=== PATIENT | female | born 1950 | race Caucasian/White ===

== ENCOUNTER 2016-07-27 10:31 | Outpatient (CLI) | payer OTHER | END 2016-07-27 10:32 | disposition home or self-care (01) | DX: G47.8 Other sleep disorders (principal); G47.10 Hypersomnia, unspecified; R51 Headache; R06.83 Snoring ==

== ENCOUNTER 2016-09-21 19:43 | Outpatient (CLI) | payer OTHER | END 2016-09-21 19:44 | disposition home or self-care (01) | DX: G47.33 Obstructive sleep apnea (adult) (pediatric) (principal); G47.61 Periodic limb movement disorder; Z68.28 Body mass index [BMI] 28.0-28.9, adult ==

== ENCOUNTER 2016-10-14 10:07 | Outpatient (CLI) | payer OTHER | END 2016-10-14 10:08 | disposition home or self-care (01) | LOC: SC 10:07 | PROVIDERS: ATTEND Nurse Practitioner Family | DX: G47.33 Obstructive sleep apnea (adult) (pediatric) (principal); G47.61 Periodic limb movement disorder | CPT/HCPCS: 99212; 99214 ==

== ENCOUNTER 2017-02-09 11:04 | Outpatient (CLI) | payer OTHER | END 2017-02-09 11:05 | disposition home or self-care (01) | LOC: SC 11:04 | PROVIDERS: ATTEND Nurse Practitioner Family | DX: G47.33 Obstructive sleep apnea (adult) (pediatric) (principal) | CPT/HCPCS: 99212; 99214 ==

== ENCOUNTER 2017-03-31 08:49 | Outpatient (CLI) | payer OTHER | END 2017-03-31 08:50 | disposition home or self-care (01) | LOC: SC 08:49 | PROVIDERS: ATTEND Nurse Practitioner Family | DX: G47.33 Obstructive sleep apnea (adult) (pediatric) (principal) | CPT/HCPCS: 99212; 99214 ==

== ENCOUNTER 2017-05-03 10:26 | Outpatient (CLI) | payer OTHER | END 2017-05-03 10:27 | disposition home or self-care (01) | LOC: SC 10:26 | PROVIDERS: ATTEND Nurse Practitioner Family | DX: G47.33 Obstructive sleep apnea (adult) (pediatric) (principal) | CPT/HCPCS: 99212; 99214 ==

== ENCOUNTER 2017-07-20 13:10 | Outpatient (CLI) | payer OTHER ==
[2017-07-20 18:22] LABS: H. PYLORIS ANTIGEN STL NEGATIVE (Negative)
== END 2017-07-20 13:11 | disposition home or self-care (01) ==
LOC: LAB.R 13:10
PROVIDERS: ATTEND Physician Assistant Medical
DX: K52.9 Noninfective gastroenteritis and colitis, unspecified (principal)
CPT/HCPCS: 81599; 83630; 87045; 87046; 87177; 87209; 87338; 87493

== ENCOUNTER 2017-07-21 10:08 | Outpatient (CLI) | payer OTHER ==
[2017-07-21 17:31] LABS: ALBUMIN 4.2 g/dL (3.2-5.5); ALBUMIN/GLOBULIN RATIO 2.1 (1.0-2.2); BILIRUBIN,TOTAL 0.5 mg/dL (0.2-1.0); CALCIUM 9.3 mg/dL (8.5-10.3); CREATININE 0.6 mg/dL (0.4-1.0); TOTAL PROTEIN 6.2 g/dL (6.7-8.2)
== END 2017-07-21 10:09 | disposition home or self-care (01) ==
LOC: LAB.F 10:08
PROVIDERS: ATTEND Physician Assistant Medical
DX: K52.9 Noninfective gastroenteritis and colitis, unspecified (principal)
CPT/HCPCS: 36415; 80053; 83690; 85651

== ENCOUNTER 2017-08-05 14:39 | Outpatient (CLI) | payer OTHER | END 2017-08-05 14:40 | disposition home or self-care (01) | LOC: LAB.WCP 14:39 | PROVIDERS: ATTEND Physician Assistant Medical | DX: K52.9 Noninfective gastroenteritis and colitis, unspecified (principal) | CPT/HCPCS: 36415; 83516 ==

== ENCOUNTER 2017-08-19 10:50 | Outpatient (CLI) | payer OTHER | END 2017-08-19 10:51 | disposition home or self-care (01) | LOC: SC 10:50 | PROVIDERS: ATTEND Nurse Practitioner Family | DX: G47.33 Obstructive sleep apnea (adult) (pediatric) (principal) | CPT/HCPCS: 99212; 99214 ==

== ENCOUNTER 2017-09-22 08:26 | Outpatient (CLI) | payer OTHER ==
--- NOTE | 2017-09-22 11:02 | Ultrasound Report ---
RIGHT UPPER QUADRANT ULTRASOUND: 09/22/2017 CLINICAL INDICATION: Diarrhea. TECHNIQUE: Real-time scanning was performed with customer sales representative static images obtained. FINDINGS: The liver measures 17 cm. Hepatic echogenicity is increased, likely representing fatty infiltration. Multiple small cysts are present. In the posterior right lobe, there is a hypoechoic 2.1 x 1.7 x 1.6 cm nodule, with associated vascularity. The appearance is suspicious. Further evaluation with liver protocol CT is recommended. The gallbladder is normal. The common bile duct measures 3 mm. The right kidney measures 10.7 cm, and demonstrates no hydronephrosis. No free fluid is present. IMPRESSION: SUSPICIOUS 2 CM NODULE IN THE POSTERIOR RIGHT LOBE OF THE LIVER. FURTHER EVALUATION WITH LIVER PROTOCOL CT IS RECOMMENDED. TD: 09/22/2017 11:01
== END 2017-09-22 08:27 | disposition home or self-care (01) ==
LOC: DI 08:26
PROVIDERS: ATTEND Physician Assistant Medical
DX: K52.9 Noninfective gastroenteritis and colitis, unspecified (principal)
CPT/HCPCS: 76705

== ENCOUNTER 2017-09-22 11:45 | Outpatient (CLI) | payer OTHER ==
--- NOTE | 2017-09-22 16:44 | Mammography Report ---
DIGITAL SCREENING MAMMOGRAM: 09/22/2017 CLINICAL INDICATION: A 66-year-old with family history of breast cancer, for screening. COMPARISON: 06/2015, 10/2012, 09/2011, 05/2010, 05/2009. TECHNIQUE: Routine CC and MLO projections were obtained of the breasts. FINDINGS: Scattered fibroglandular tissue is present within the breasts. There are no dominant masses, suspicious microcalcifications, or secondary signs of malignancy. In comparison to the previous studies, there are no significant changes. ASSESSMENT: NO MAMMOGRAPHIC EVIDENCE OF MALIGNANCY. NO SIGNIFICANT INTERVAL CHANGES. RECOMMENDATION: Screening mammography is recommended annually. BIRADS CATEGORY 1 - NEGATIVE. STANDARD QUALIFYING STATEMENTS: 1. This examination was reviewed with the aid of Computed-Aided Detection (CAD). 2. A negative or benign imaging report should not delay biopsy if clinically suspicious findings are present. Consider surgical consultation if warranted. More than 5% of cancers are not identified by imaging. 3. Dense breasts may obscure an underlying neoplasm. TD: 09/22/2017 16:43
== END 2017-09-22 11:46 | disposition home or self-care (01) ==
LOC: DI.S 11:45
PROVIDERS: ATTEND Physician Assistant Medical
DX: Z12.31 Encounter for screening mammogram for malignant neoplasm of breast (principal); Z80.3 Family history of malignant neoplasm of breast
CPT/HCPCS: 77067

== ENCOUNTER 2017-10-05 11:08 | Outpatient (CLI) | payer OTHER ==
[2017-10-05 11:46] LABS: ALBUMIN 4.2 g/dL (3.2-5.5); ALBUMIN/GLOBULIN RATIO 1.7 (1.0-2.2); BILIRUBIN,TOTAL 0.8 mg/dL (0.2-1.0); CALCIUM 9.2 mg/dL (8.5-10.3); CREATININE 0.6 mg/dL (0.4-1.0); TOTAL PROTEIN 6.7 g/dL (6.7-8.2)
[2017-10-05] MEDS ORDERED: IOPAMIDOL-300 100 ML VIAL ONE (12:08)
[2017-10-05] MEDS ORDERED: IOPAMIDOL-300 100 ML VIAL IVP ONE (12:17)
--- NOTE | 2017-10-05 14:52 | CT Report ---
CT ABDOMEN WITH AND WITHOUT CONTRAST: 10/05/2017 CLINICAL INDICATION: Suspicious lesion posterior right lobe of the liver on ultrasound. TECHNIQUE: Axial CT images of the abdomen were obtained prior to and following 100 mL Isovue 300 intravenously, with enhanced images in the early arterial phase, portal venous phase, and delayed phase. COMPARISON: Ultrasound 09/22/2017. FINDINGS: Limited evaluation of the lung bases is unremarkable. ABDOMEN: The liver demonstrates multiple simple cysts. In the posterior right lobe of the liver, at the site of ultrasound abnormality, there is a 2.3 x 1.5 cm nodule. It demonstrates early arterial enhancement, mildly hyperintense enhancement relative to hepatic parenchyma on portal venous phase, and no evidence of prolonged contrast enhancement on delayed phase imaging. The appearance is suspicious for neoplasm. It is not the enhancement pattern of a typical hepatic hemangioma. Further evaluation with either biopsy or liver MRI is recommended. The spleen, pancreas, kidneys and adrenal glands appear unremarkable. No biliary dilatation is seen. The gallbladder is not dilated. No bowel dilatation, free gas, or free fluid is present. No abdominal adenopathy is seen. IMPRESSION: SUSPICIOUS MASS IN THE POSTEROMEDIAL RIGHT LOBE OF THE LIVER. FURTHER EVALUATION WITH BIOPSY OR LIVER MRI IS RECOMMENDED. CT DOSE REDUCTION STATEMENT In accordance with CT protocol optimization, one or more of the following dose reduction techniques were utilized for this exam: automated exposure control, adjustment of mA and/or KV based on patient size, or use of iterative reconstructive technique. TD: 10/05/2017 14:32
== END 2017-10-05 11:09 | disposition home or self-care (01) ==
LOC: LAB 11:08 → DI 11:09
PROVIDERS: ATTEND Physician Assistant Medical
DX: R16.0 Hepatomegaly, not elsewhere classified (principal)
CPT/HCPCS: 36415; 74170; 80053; Q9967

== ENCOUNTER 2017-12-20 13:02 | Outpatient (CLI) | payer OTHER | END 2017-12-20 13:03 | disposition home or self-care (01) | LOC: LAB.F 13:02 | PROVIDERS: ATTEND Physician Assistant | DX: R19.7 Diarrhea, unspecified (principal) | CPT/HCPCS: 82705 ==

== ENCOUNTER 2018-03-16 09:21 | Outpatient (CLI) | payer OTHER ==
[2018-03-16 18:25] LABS: CHOL/HDL RATIO 2.4 (<4.4); CHOLESTEROL 240 mg/dL; HDL CHOLESTEROL 98 mg/dL; LDL CHOLESTEROL,CALCULATED 122 mg/dL; LDL/HDL RATIO 1.2 (<4.4); VLDL CHOLESTEROL 20 mg/dL
== END 2018-03-16 09:22 | disposition home or self-care (01) ==
LOC: LAB.F 09:21
PROVIDERS: ATTEND Physician Assistant Medical
DX: E78.00 Pure hypercholesterolemia, unspecified (principal); H93.A2 Pulsatile tinnitus, left ear
CPT/HCPCS: 36415; 80061; 83721; 84443

== ENCOUNTER 2018-03-21 14:08 | Outpatient (CLI) | payer OTHER ==
--- NOTE | 2018-03-22 11:54 | Ultrasound Report ---
Reason: HYPERCHOLESTEROLEMIA, PULSATILE TINNITUS, LEFT EAR Procedure Date: 03/21/2018 Accession Number: [id number] / [id number] Procedure: US - Carotid Doppler Complete CPT Code: FULL RESULT: EXAM: BILATERAL CAROTID AND VERTEBRAL ARTERY DUPLEX DOPPLER ULTRASOUND: EXAM DATE: 03/21/2018 04:04 PM CLINICAL HISTORY: Hypercholesterolemia, pulsatile tinnitus, left ear. COMPARISON: None. TECHNIQUE: Grayscale imaging, color Doppler, and duplex spectral Doppler were used to evaluate the carotid and vertebral arteries bilaterally. Static images were obtained. FINDINGS: There is mild intimal thickening bilaterally and scant hypoechoic atherosclerotic plaque in the bulb regions on both sides. No hemodynamically significant plaque is identified in the right or left common or internal carotid arteries. Normal antegrade flow is present in bilateral vertebral arteries. VELOCITIES (cm/sec): Right CCA Mid: PSV 82.83 cm/sec CCA Dist: PSV 74.17 cm/sec ICA Prox: PSV 60.57 cm/sec, EDV 21.63 cm/sec ICA Mid: PSV 53.47 cm/sec, EDV 18.24 cm/sec ICA Dist: PSV 69.54 cm/sec, EDV 21.90 cm/sec ECA: PSV 81.67 cm/sec Vert: PSV 39.02 cm/sec ICA/CCA: 0.93 Left CCA Mid: PSV 82.83 cm/sec CCA Dist: PSV 74.17 cm/sec ICA Prox: PSV 58.72 cm/sec, EDV 19.16 cm/sec ICA Mid: PSV 60.50 cm/sec, EDV 15.30 cm/sec ICA Dist: PSV 75.79 cm/sec, EDV 28.51 cm/sec ECA: PSV 108.17 cm/sec Vert: PSV 52.46 cm/sec ICA/CCA: 1.02 ICA diameter stenosis: Right: Normal by velocity and <70% by NASCET criteria. Left: Normal by velocity and <70% by NASCET criteria. IMPRESSION: 1. No hemodynamically significant bilateral carotid artery plaquing. 2. In the right carotid artery there are no elevated carotid artery velocities to suggest hemodynamically significant stenosis. 3. In the left carotid artery there are no elevated carotid artery velocities to suggest hemodynamically significant stenosis. 4. Normal antegrade flow is present in bilateral vertebral arteries. General Recommendations: Stenosis =50% ICA - Follow-up ultrasound 6-12 months Stenosis <50% ICA - High Risk Patient with plaque - Follow-up ultrasound 1-2 years Normal Study but High Risk Patient - Follow-up ultrasound 3-5 years Management recommendations and diagnostic criteria are based on current IAC endorsed standards in Carotid Artery Stenosis: Grayscale and Doppler Ultrasound Diagnosis. Validated velocity measurements with angiographic measurements and velocity criteria are extrapolated from diameter data as defined by the Society of Radiologists in Ultrasound Consensus Conference Radiology 2003; 229;340-346. RADIA
== END 2018-03-21 14:09 | disposition home or self-care (01) ==
LOC: DI 14:08
PROVIDERS: ATTEND Physician Assistant Medical
DX: E78.00 Pure hypercholesterolemia, unspecified (principal); H93.A2 Pulsatile tinnitus, left ear
CPT/HCPCS: 93880

== ENCOUNTER 2018-03-28 16:12 | Outpatient (CLI) | payer OTHER ==
--- NOTE | 2018-03-29 09:13 | XRAY Report ---
Reason: NECK PAIN,CHRONIC Procedure Date: 03/28/2018 Accession Number: [id number] / [id number] Procedure: XR - Cervical Spine 2 View CPT Code: FULL RESULT: EXAM: CERVICAL SPINE RADIOGRAPHY EXAM DATE: 03/28/2018 04:32 PM. CLINICAL HISTORY: Neck pain, chronic. COMPARISONS: None. TECHNIQUE: 3 views. FINDINGS: Alignment: There is 1 mm of degenerative anterolisthesis of C3 relative to C4, 2 mm of degenerative anterolisthesis of C4 relative to C5 and at least 2 mm of anterolisthesis of C6 relative to C7. Bones: The cervical vertebral bodies and posterior elements are well visualized from the skull base through C7-T1. No fractures or bone lesions. Disks: Degenerative disk space narrowing is noted at C4-C5 and C5-C6. Facets: Multilevel degenerative facet arthrosis is noted at C3-C4 through C6-C7. Soft Tissues: Normal. No prevertebral soft tissue swelling. The visualized lung apices are clear. IMPRESSION: Multilevel degenerative changes as described. No appreciable fracture. RADIA
== END 2018-03-28 16:13 | disposition home or self-care (01) ==
LOC: DI 16:12
PROVIDERS: ATTEND Physician Assistant Medical
DX: M47.9 Spondylosis, unspecified (principal); M50.321 Other cervical disc degeneration at C4-C5 level; M43.12 Spondylolisthesis, cervical region
CPT/HCPCS: 72040

== ENCOUNTER 2018-08-17 13:40 | Outpatient (CLI) | payer OTHER ==
--- NOTE | 2018-08-17 15:54 | XRAY Report ---
Reason: LUMBAR RADICULOPATHY Procedure Date: 08/17/2018 Accession Number: [id number] / [id number] Procedure: XR - Lumbar Spine 2 View CPT Code: FULL RESULT: EXAM: LUMBOSACRAL SPINE RADIOGRAPHY EXAM DATE: 08/17/2018 02:01 PM. CLINICAL HISTORY: Lumbar radiculopathy. COMPARISONS: None. TECHNIQUE: 3 views. FINDINGS: Alignment: There are 6 wlc-zkw-cjbrcfl lumbar vertebral elements. There is a centimeter of grade 1-2 anterolisthesis of L5 on L6. Bones: There are 6 gof-omz-amvibeb lumbar vertebral elements. No fractures or bone lesions. Disks: Mild disk space narrowing at L5-L6. Facets: Mild degenerative facet changes at L5-L6. Sacroiliac Joints: Unremarkable. Soft Tissues: Normal. The visualized bowel gas pattern is normal. Mild osteitis pubis. IMPRESSION: 6 xkf-vrg-olvdrpx lumbar vertebral elements with a centimeter of grade 1-2 anterolisthesis of L5 on L6. RADIA
== END 2018-08-17 13:41 | disposition home or self-care (01) ==
LOC: DI 13:40
PROVIDERS: ATTEND Physician Assistant Medical
DX: M51.36 Other intervertebral disc degeneration, lumbar region (principal); M47.9 Spondylosis, unspecified; M43.16 Spondylolisthesis, lumbar region
CPT/HCPCS: 72100

== ENCOUNTER 2019-10-25 10:53 | Outpatient (CLI) | payer OTHER ==
--- NOTE | 2019-10-25 12:50 | XRAY Report ---
Reason: KNEE PAIN,LEFT Procedure Date: 10/25/2019 Accession Number: [id number] / [id number] Procedure: XR - Knee 3 View LT CPT Code: Final Report FULL RESULT: PROCEDURE: Knee 3 View LT INDICATIONS: KNEE PAIN,LEFT TECHNIQUE: 3 views of the left knee(s) were acquired, and a frontal weightbearing view of the right knee also was obtained. COMPARISON: None. FINDINGS: Bones: No fractures or dislocations. There is, however, moderately severe degenerative osteoarthritic change at the medial compartment with near ctrq-vc-kosm articulation. Mild to moderate degree of narrowing of the joint space is seen at the lateral compartment and at the patellofemoral joint only a mild degree of degeneration can be seen. The degree of osteoarthritic change at the left knee is greater at the medial compartment than on the right by a mild degree. No suspicious bony lesions. Soft tissues: No joint effusion. No suspicious soft tissue calcifications note is made of lobulated soft tissue prominence, within the visualized distal thigh and proximal calf regions bilaterally greater on the right than the left suspicious for representing prominent varices in this patient.. IMPRESSION: No trauma found, no acute disease. Moderately severe medial compartment left knee joint osteoarthritis more prominent than at the slightly lesser degree of involvement on the right. Suspect bilateral varices is noted given the soft tissue prominence in a lobulated fashion over the fatty soft tissues of each lower extremity. Reviewed by: William Vincent MD on 10/25/2019 12:48 PM PDT Approved by: William Vincent MD on 10/25/2019 12:48 PM PDT Station ID: [id number]
== END 2019-10-25 10:54 | disposition home or self-care (01) ==
LOC: DI 10:53
PROVIDERS: ATTEND Physician Assistant Medical
DX: M17.12 Unilateral primary osteoarthritis, left knee (principal)

== ENCOUNTER 2020-03-27 15:14 | Outpatient (CLI) | payer OTHER ==
--- NOTE | 2020-03-28 03:36 | DEXA Report ---
PROCEDURE: Dexa Spine and/or Hip INDICATIONS: POST MENOPAUSAL TECHNIQUE: Dual energy x-ray absorptiometry (DXA) was performed on a [employer] System. Regions measur ed are the AP Spine, femoral neck, and if needed forearm. COMPARISON: None. FINDINGS: Lumbar Spine: Bone Mineral Density 1.091 g/cm/cm,T score -0.7, normal Left Hip: Bone Mineral Density 0.958 g/cm/cm,T score -0.4, normal Left Femoral Neck: Bone Mineral Density 0.840 g/cm/cm, T score -1.4, mild osteopenia (T score greater or equal to -1.0: NORMAL) (T score from -1.1 to -2.4: OSTEOPENIA) (T score less than or equal to -2.5 to: OSTEOPOROSIS) Impression: Mild osteopenia within the left femoral neck. Patients with diagnosis of osteoporosis or osteopenia should have regular bone mineral density assess ment. For those eligible for Medicare, routine testing is allowed once every 2 years. Testing frequ ency can be increased for patients who have rapidly progressing disease or for those who are receivin g medical therapy to restore bone mass. Reviewed by: Kim Jean MD on 03/27/2020 4:54 PM PST Approved by: Kim Jean MD on 03/27/2020 4:54 PM PST Station ID: [id number]
== END 2020-03-27 15:15 | disposition home or self-care (01) ==
LOC: DI 15:14
PROVIDERS: ATTEND Physician Assistant Medical
DX: M85.88 Other specified disorders of bone density and structure, other site (principal)
CPT/HCPCS: 77080

== ENCOUNTER 2020-03-27 15:16 | Outpatient (CLI) | payer OTHER ==
--- NOTE | 2020-03-28 13:20 | Mammography Report ---
BILATERAL DIGITAL SCREENING MAMMOGRAM 3D/2D: 03/27/2020 CLINICAL: Routine screening. Comparison is made to exams dated: 10/02/2017 mammogram, 06/24/2015 mammogram, 10/24/2012 mammogram, 05/18 mammogram, and 05/24/2009 mammogram - [facility]. There are scattered fibrogl andular elements in both breasts. No significant masses, calcifications, or other findings are seen in either breast. There has been no significant interval change. IMPRESSION: NEGATIVE There is no mammographic evidence of malignancy. A 1 year screening mammogram is recommended. This exam was interpreted at Station ID: [id number]. NOTE: For mammograms, a report in lay terms will be sent to the patient. Approximately 15% of breast malignancies will not be visualized mammographically. In the management of a palpable breast mass, a negative mammogram must not discourage biopsy of a clinically suspicious lesion. Electronically Signed By: Montserrat baker/edy:03/27/2020 16:41:24 ACR BI-RADS Category 1: Negative 3341F PARENCHYMAL PATTERN: (A) - The breast(s) demonstrate(s) scattered fibroglandular densities. BI-RADS CATEGORY: (1) - 1 RECOMMENDATION: (ANNUAL) - Recommend routine annual screening mammography. [id number] 1 year screening LATERALITY: (B)
== END 2020-03-27 15:17 | disposition home or self-care (01) ==
LOC: DI 15:16
DX: Z12.31 Encounter for screening mammogram for malignant neoplasm of breast (principal)
CPT/HCPCS: 77063; 77067

== ENCOUNTER 2021-02-21 12:40 | Outpatient (CLI) | payer MEDICARE, OTHER ==
[2021-02-21 14:46] LABS: BASOPHILS % (AUTO) 0.7 %; EOSINOPHILS % (AUTO) 0.5 %; HGB - HEMOGLOBIN 13.2 g/dL (12.0-16.0); LYMPHOCYTES # (AUTO) 1.2 10^3/uL (1.5-3.5); LYMPHOCYTES % (AUTO) 29.9 %; MEAN CORPUSCULAR HEMOGLOBIN 31.7 pg (27.0-31.0); MEAN CORPUSCULAR HGB CONC 32.2 g/dL (32.0-36.0); MEAN CORPUSCULAR VOLUME 98.6 fL (81.0-99.0); MEAN PLATELET VOLUME 9.1 fL (7.9-10.8); MONOCYTES # (AUTO) 0.5 10^3/uL (0.0-1.0); MONOCYTES % (AUTO) 11.9 %; NEUTROPHILS # (AUTO) 2.3 10^3/uL (1.5-6.6); NEUTROPHILS % (AUTO) 56.8 %; PLT - PLATELET COUNT 260 10^3/uL (130-450); RED BLOOD COUNT 4.16 10^6/uL (4.20-5.40); RED CELL DISTRIBUTION WIDTH 13.2 % (12.0-15.0); WHITE BLOOD COUNT 4.1 x10^3/uL (4.8-10.8)
[2021-02-21 15:13] LABS: ALBUMIN 4.2 g/dL (3.2-5.5); ALBUMIN/GLOBULIN RATIO 1.8 (1.0-2.2); BILIRUBIN,TOTAL 0.6 mg/dL (0.2-1.0); CALCIUM 9.8 mg/dL (8.5-10.3); CREATININE 0.6 mg/dL (0.4-1.0); POTASSIUM 4.6 mmol/L (3.5-5.0); TOTAL PROTEIN 6.6 g/dL (6.7-8.2)
== END 2021-02-21 23:59 | disposition home or self-care (01) ==
LOC: LAB.S 12:40
PROVIDERS: ATTEND Emergency Medicine
DX: E11.9 Type 2 diabetes mellitus without complications (principal)
CPT/HCPCS: 36415; 80053; 85025

== ENCOUNTER 2021-05-05 11:00 | Outpatient (CLI) | payer MEDICARE ==
--- NOTE | 2021-05-06 11:46 | Mammography Report ---
BILATERAL DIGITAL SCREENING MAMMOGRAM 3D/2D: 05/05/2021 CLINICAL: Routine screening. Family history of breast cancer. Comparison is made to exams dated: 03/27/2020 mammogram, 10/02/2017 mammogram, 06/24/2015 mammogram, 02/2013 mammogram, and 06/13/2010 mammogram - [facility]. There are scattered fibro glandular elements in both breasts. No significant masses, calcifications, or other findings are seen in either breast. There has been no significant interval change. IMPRESSION: NEGATIVE There is no mammographic evidence of malignancy. A 1 year screening mammogram is recommended. This exam was interpreted at Station ID: [id number]. NOTE: For mammograms, a report in lay terms will be sent to the patient. Approximately 15% of breast malignancies will not be visualized mammographically. In the management of a palpable breast mass, a negative mammogram must not discourage biopsy of a clinically suspicious lesion. Electronically Signed By: Mohit Guzman M.D., jr/edy:05/05/2021 12:00:30 ACR BI-RADS Category 1: Negative 3341F PARENCHYMAL PATTERN: (A) - The breast(s) demonstrate(s) scattered fibroglandular densities. BI-RADS CATEGORY: (1) - 1 RECOMMENDATION: (ANNUAL) - Recommend routine annual screening mammography. [id number] 1 year screening LATERALITY: (B)
== END 2021-05-05 11:01 | disposition home or self-care (01) ==
LOC: DI.S 11:00
DX: Z12.31 Encounter for screening mammogram for malignant neoplasm of breast (principal); Z80.3 Family history of malignant neoplasm of breast

== ENCOUNTER 2021-07-14 09:38 | Outpatient (CLI) | payer MEDICARE ==
[2021-07-14 15:01] LABS: THYROID STIMULATING HORMONE 1.91 uIU/mL (0.34-5.60)
[2021-07-14 15:06] LABS: CHOL/HDL RATIO 2.8 (<4.4); CHOLESTEROL 309 mg/dL; HDL CHOLESTEROL 110 mg/dL; LDL CHOLESTEROL,CALCULATED 185 mg/dL; LDL/HDL RATIO 1.7 (<4.4); TRIGLYCERIDES 71 mg/dL; VLDL CHOLESTEROL 14 mg/dL
== END 2021-07-14 09:39 | disposition home or self-care (01) ==
LOC: LAB.S 09:38
PROVIDERS: ATTEND Physician Assistant Medical
DX: Z00.00 Encounter for general adult medical examination without abnormal findings (principal); E78.00 Pure hypercholesterolemia, unspecified
CPT/HCPCS: 36415; 80061; 83721; 84443

== ENCOUNTER 2021-11-21 08:57 | Outpatient (CLI) | payer MEDICARE ==
[2021-11-21 15:16] LABS: ALBUMIN 3.9 g/dL (3.2-5.5); ALBUMIN/GLOBULIN RATIO 1.6 (1.0-2.2); ALKALINE PHOSPHATASE 44 IU/L (42-121); ALT ALANINE AMINOTRANSFERASE 30 IU/L (10-60); AST ASPARTATE AMINOTRANSFERASE 28 IU/L (10-42); BILIRUBIN,TOTAL 0.4 mg/dL (0.2-1.0); BUN - BLOOD UREA NITROGEN 15 mg/dL (6-20); CARBON DIOXIDE - CO2 30 mmol/L (21-32); CHLORIDE 101 mmol/L (101-111); CHOL/HDL RATIO 2.2 (<4.4); CHOLESTEROL 198 mg/dL; CREATININE 0.6 mg/dL (0.4-1.0); GFR - MDRD 99 (>89); GLUCOSE 91 mg/dL (70-100); HDL CHOLESTEROL 90 mg/dL; LDL CHOLESTEROL,CALCULATED 95 mg/dL; LDL/HDL RATIO 1.1 (<4.4); POTASSIUM 4.4 mmol/L (3.5-5.0); SODIUM 138 mmol/L (135-145); TOTAL PROTEIN 6.4 g/dL (6.7-8.2); TRIGLYCERIDES 67 mg/dL; VLDL CHOLESTEROL 13 mg/dL
== END 2021-11-21 08:58 | disposition home or self-care (01) ==
LOC: LAB.S 08:57
PROVIDERS: ATTEND Physician Assistant Medical
DX: E78.5 Hyperlipidemia, unspecified (principal)
CPT/HCPCS: 36415; 80053; 80061; 83721

== ENCOUNTER 2022-08-17 09:44 | Outpatient (CLI) | payer MEDICARE ==
[2022-08-17 14:41] LABS: BASOPHILS % (AUTO) 1.1 %; EOSINOPHILS % (AUTO) 1.1 %; HCT - HEMATOCRIT 41.1 % (37.0-47.0); HGB - HEMOGLOBIN 12.7 g/dL (12.0-16.0); LYMPHOCYTES # (AUTO) 1.1 10^3/uL (1.5-3.5); LYMPHOCYTES % (AUTO) 29.7 %; MEAN CORPUSCULAR HEMOGLOBIN 31.1 pg (27.0-31.0); MEAN CORPUSCULAR HGB CONC 30.9 g/dL (32.0-36.0); MEAN CORPUSCULAR VOLUME 100.7 fL (81.0-99.0); MEAN PLATELET VOLUME 9.1 fL (7.9-10.8); MONOCYTES # (AUTO) 0.4 10^3/uL (0.0-1.0); MONOCYTES % (AUTO) 10.5 %; NEUTROPHILS % (AUTO) 57.6 %; PLT - PLATELET COUNT 263 10^3/uL (130-450); RED BLOOD COUNT 4.08 10^6/uL (4.20-5.40); WHITE BLOOD COUNT 3.5 x10^3/uL (4.8-10.8)
[2022-08-17 15:45] LABS: THYROID STIMULATING HORMONE 2.63 uIU/mL (0.34-5.60)
[2022-08-17 15:52] LABS: ALBUMIN/GLOBULIN RATIO 1.7 (1.0-2.2); ALKALINE PHOSPHATASE 35 IU/L (42-121); ALT ALANINE AMINOTRANSFERASE 27 IU/L (10-60); AST ASPARTATE AMINOTRANSFERASE 28 IU/L (10-42); BILIRUBIN,TOTAL 0.7 mg/dL (0.2-1.0); BUN - BLOOD UREA NITROGEN 16 mg/dL (6-20); CALCIUM 9.2 mg/dL (8.5-10.3); CARBON DIOXIDE - CO2 32 mmol/L (21-32); CHLORIDE 106 mmol/L (101-111); CHOL/HDL RATIO 1.9 (<4.4); CHOLESTEROL 214 mg/dL; CREATININE 0.6 mg/dL (0.4-1.0); GFR - MDRD 98 (>89); GLUCOSE 95 mg/dL (70-100); HDL CHOLESTEROL 114 mg/dL; LDL CHOLESTEROL,CALCULATED 92 mg/dL; LDL/HDL RATIO 0.8 (<4.4); POTASSIUM 4.4 mmol/L (3.5-5.0); SODIUM 138 mmol/L (135-145); TOTAL PROTEIN 6.4 g/dL (6.7-8.2); TRIGLYCERIDES 41 mg/dL; VLDL CHOLESTEROL 8 mg/dL
== END 2022-08-17 09:45 | disposition home or self-care (01) ==
LOC: LAB.S 09:44
PROVIDERS: ATTEND Physician Assistant Medical
DX: D64.9 Anemia, unspecified (principal); E03.9 Hypothyroidism, unspecified; E78.5 Hyperlipidemia, unspecified
CPT/HCPCS: 36415; 80053; 80061; 83721; 84443; 85025

== ENCOUNTER 2022-08-24 09:58 | Outpatient (CLI) | payer MEDICARE ==
--- NOTE | 2022-08-25 09:03 | Mammography Report ---
BILATERAL DIGITAL SCREENING MAMMOGRAM 3D/2D: 08/24/2022 CLINICAL: Routine screening. Family history of breast cancer. Comparison is made to exams dated: 05/05/2021 mammogram, 03/27/2020 mammogram, 10/02/2017 mammogram, and 06/24/2015 mammogram - [facility]. There are scattered areas of fibroglandular density in both breasts (category b / 25%-50% glandular t issue). No significant masses, calcifications, or other findings are seen in either breast. There has been no significant interval change. IMPRESSION: NEGATIVE There is no mammographic evidence of malignancy. A 1 year screening mammogram is recommended. Based on the Tyrer Cuzick model (a risk assessment model) the patients lifetime risk is 13.9% and he r 10 year risk is 10.5%. According to the ACR, ACS, and NCCN guidelines, an annual breast MRI exam al kaveh with mammogram is recommended if the patients lifetime risk is 20% or greater. This exam was interpreted at Station ID: [id number]. NOTE: For mammograms, a report in lay terms will be sent to the patient. Approximately 15% of breast malignancies will not be visualized mammographically. In the management of a palpable breast mass, a negative mammogram must not discourage biopsy of a clinically suspicious lesion. Electronically Signed By: Luigi jenkins/edy:08/24/2022 18:06:00 letter sent: No_Letter ACR BI-RADS Category 1: Negative 3341F PARENCHYMAL PATTERN: (A) - The breast(s) demonstrate(s) scattered fibroglandular densities. BI-RADS CATEGORY: (1) - 1 Mammogram [id number] 1 year screening LATERALITY: (B)
== END 2022-08-24 09:59 | disposition home or self-care (01) ==
LOC: DI.S 09:58
DX: Z12.31 Encounter for screening mammogram for malignant neoplasm of breast (principal); Z80.3 Family history of malignant neoplasm of breast

== ENCOUNTER 2023-03-03 04:49 | Outpatient (CLI) | payer MEDICARE | END 2023-03-03 23:59 | disposition critical access hospital (66) | LOC: EMS 04:49 | DX: R31.9 Hematuria, unspecified (principal); R39.15 Urgency of urination | CPT/HCPCS: A0425; A0429 ==

== ENCOUNTER 2023-03-03 05:32 | Emergency (ER) | payer MEDICARE ==
[2023-03-03 05:52] VITALS: BP 108/81
[2023-03-03 06:00] LABS: BILIRUBIN,URINE NEGATIVE (NEGATIVE); GLUCOSE, URINE (UA) NEGATIVE (NEGATIVE); KETONES,URINE (UA) NEGATIVE (NEGATIVE); LEUKOCYTE ESTERASE, URINE MODERATE (NEGATIVE); NITRITE,URINE NEGATIVE (NEGATIVE); OCCULT BLOOD,URINE LARGE (NEGATIVE); PH,URINE 6.5 PH (5.0-7.5); PROTEIN,URINE >=300 mg/dL (NEGATIVE); UROBILINOGEN,URINE 0.2 (NORMAL) E.U./dL (NORMAL)
[2023-03-03 06:03] LABS: CLARITY,URINE CLOUDY (CLEAR); RBC,URINE TNTC /HPF (0-5); WBC,URINE >25 /HPF (0-5)
[2023-03-03 06:04] LABS: BACTERIA,URINE Few /HPF (None Seen); SQUAMOUS EPITHELIAL CELL,UR RARE Squamous (<= Few)
[2023-03-03] MEDS ORDERED: SULFAMETH/TRIMETH DS 800/160 MG TABLET PO STA (06:14)
[2023-03-03] MEDS ORDERED: PHENAZOPYRIDINE 100 MG TABLET PO STA (06:15)
[2023-03-03] MEDS ORDERED: CIPROFLOXACIN 250 MG TABLET PO STA (06:19)
--- NOTE | 2023-03-03 06:19 | ED Physician Documentation ---
PD HPI FEMALE - Stated complaint Stated Complaint: URINATING BLOOD - Chief complaint Chief Complaint: Abd Pain - History obtained from History obtained from: Patient - Additional information Additional information: The patient comes to the emergency department chief complaint of hematuria for less than 1 day. She has had some urinary frequency and dysuria but denies any fevers or chills. No nausea or vomiting. No mild suprapubic abdominal pain. No other complaints at this time. She is not on any anticoagulants. PD PAST MEDICAL HISTORY - Present Medications Home Medications: Ambulatory Orders Medication Instructions Recorded Confirmed Ciprofloxacin HCl [Cipro] 500 mg PO BID #14 tablet 03/03/23 Phenazopyridine HCl [Pyridium] 200 mg PO TID PRN #6 tablet 03/03/23 - Allergies Allergies/Adverse Reactions: Allergies Allergy/AdvReac Type Severity Reaction Status Date / Time Penicillins Allergy Hives Verified 03/03/23 06:25 Sulfa (Sulfonamide Allergy Hives Verified 03/03/23 06:24 Antibiotics) PD ED PE NORMAL - Vitals Vital signs reviewed: Yes - General General: Alert and oriented X 3, No acute distress, Well developed/nourished - HEENT HEENT: Atraumatic, PERRL, EOMI, Moist mucous membranes - Neck Neck: Supple, no meningeal sign - Cardiac Cardiac: RRR, No murmur - Respiratory Respiratory: No respiratory distress, Clear bilaterally - Abdomen Abdomen: Soft, Non distended, Other (Mild suprapubic tenderness, no rebound or guarding.) - Derm Derm: Normal color, Warm and dry, No rash - Extremities Extremities: No deformity, No edema - Neuro Neuro: Alert and oriented X 3, Other (Grossly intact.) - Psych Psych: Normal mood, Normal affect Results - Vitals Vitals: Oxygen O2 Source Room air - Labs Labs: Microbiology 03/03/23 05:47 Urine Culture - Final Urine,Clean Catch Escherichia Coli Laboratory Tests 03/03/23 05:47 Urine Color RED/BLOODY Urine Clarity CLOUDY Urine pH 6.5 Ur Specific [place] 1.020 Urine Protein >=300 H Urine Glucose (UA) NEGATIVE Urine Ketones NEGATIVE Urine Occult Blood LARGE H Urine Nitrite NEGATIVE Urine Bilirubin NEGATIVE Urine Urobilinogen 0.2 (NORMAL) Ur Leukocyte Esterase MODERATE H Urine RBC TNTC H Urine WBC >25 H Ur Squamous Epith Cells RARE Squamous Urine Bacteria Few Ur Microscopic Review INDICATED Urine Culture Comments INDICATED PD Medical Decision Making - ED course Complexity details: reviewed results, re-evaluated patient, considered differential, d/w patient ED course: The patient was worked up with urinalysis, which showed large amount of blood and positive leukocyte esterase and white blood cells. I suspected the patient had a hemorrhagic UTI. She was started on antibiotics in the emergency department and prescribed the same. She was also given Pyridium. We have discussed symptomatic management at home, the need for compliance with antibiotics, and the usual indications for return. Departure - Departure Disposition: Home, Self Care Clinical Impression: Urinary tract infection Qualifiers: Urinary tract infection type: acute cystitis Hematuria presence: with hematuria Qualified Code(s): N30.01 - Acute cystitis with hematuria Condition: Stable Instructions: ED UTI Cystitis Female Prescriptions: Ciprofloxacin HCl [Cipro] 500 mg PO BID #14 tablet Phenazopyridine HCl [Pyridium] 200 mg PO TID PRN #6 tablet PRN Reason: dysuria Comments: Your urinalysis this morning is positive for infection. You been started on antibiotics here in the emergency department, as well as Pyridium to help with the irritation of the bladder lining. A prescription for the same has been e lectronically transmitted to the [facility] in [place]. Although these medications will start to work right away, you will most likely have some blood in your urine for the next few days. However, you should start to notice it getting less and less. The same is true with your discomfort, which will subside over the next few days. Please follow-up with your primary doctor if you are not feeling better in a week. Forms: PCP List Discharge Date/Time: 03/03/23 06:40
[2023-03-03 06:50] VITALS: O2SAT 99
== END 2023-03-03 06:40 | disposition home or self-care (01) ==
LOC: EDUNIT# → ED 05:32
DX: N30.01 Acute cystitis with hematuria (principal); B96.20 Unspecified Escherichia coli [E. coli] as the cause of diseases classified elsewhere
CPT/HCPCS: 81001; 87086; 87181; 99283; A9270; 81003

== ENCOUNTER 2023-03-08 08:00 | Outpatient (CLI) | payer MEDICARE ==
[2023-03-08 20:07] LABS: BILIRUBIN,URINE NEGATIVE (NEGATIVE); GLUCOSE, URINE (UA) NEGATIVE (NEGATIVE); KETONES,URINE (UA) NEGATIVE (NEGATIVE); LEUKOCYTE ESTERASE, URINE NEGATIVE (NEGATIVE); NITRITE,URINE NEGATIVE (NEGATIVE); OCCULT BLOOD,URINE NEGATIVE (NEGATIVE); PROTEIN,URINE NEGATIVE (NEGATIVE); UROBILINOGEN,URINE 0.2 (NORMAL) E.U./dL (NORMAL)
[2023-03-08 20:10] LABS: CLARITY,URINE CLEAR (CLEAR)
[2023-03-08 20:35] LABS: BACTERIA,URINE None Seen /HPF (None Seen); RBC,URINE None Seen /HPF (0-5); SQUAMOUS EPITHELIAL CELL,UR FEW Squamous (<= Few); WBC,URINE 0-3 /HPF (0-5)
== END 2023-03-08 23:59 | disposition home or self-care (01) ==
LOC: LAB.S 08:00
PROVIDERS: ATTEND Emergency Medicine
DX: N30.01 Acute cystitis with hematuria (principal)
CPT/HCPCS: 81001; 87086

== ENCOUNTER 2023-03-18 07:00 | Outpatient (CLI) | payer MEDICARE ==
[2023-03-18 20:00] LABS: BILIRUBIN,URINE NEGATIVE (NEGATIVE); GLUCOSE, URINE (UA) NEGATIVE (NEGATIVE); KETONES,URINE (UA) TRACE mg/dL (NEGATIVE); LEUKOCYTE ESTERASE, URINE NEGATIVE (NEGATIVE); NITRITE,URINE NEGATIVE (NEGATIVE); OCCULT BLOOD,URINE NEGATIVE (NEGATIVE); PROTEIN,URINE NEGATIVE (NEGATIVE); UROBILINOGEN,URINE 1 (NORMAL) E.U./dL (NORMAL)
[2023-03-18 20:07] LABS: CLARITY,URINE HAZY (CLEAR)
[2023-03-18 20:15] LABS: BACTERIA,URINE Many /HPF (None Seen); RBC,URINE 0-5 /HPF (0-5); SQUAMOUS EPITHELIAL CELL,UR RARE Squamous (<= Few); WBC,URINE 0-3 /HPF (0-5)
[2023-03-18 20:16] LABS: AMORPHOUS SEDIMENT,UR Moderate /LPF; CRYSTALS,URINE 3-5 Calcium Oxalate /LPF
== END 2023-03-18 23:59 | disposition home or self-care (01) ==
LOC: LAB.S 07:00
PROVIDERS: ATTEND Emergency Medicine
DX: N30.01 Acute cystitis with hematuria (principal)
CPT/HCPCS: 81001; 87086

== ENCOUNTER 2023-04-10 12:29 | Outpatient (CLI) | payer MEDICARE ==
--- NOTE | 2023-04-11 09:41 | Ultrasound Report ---
PROCEDURE: Pelvic w/Transvaginal INDICATIONS: LEFT LOWER QUAD ABD PAIN TECHNIQUE: Real-time scanning was performed of the pelvic organs, with image documentation. Additional endovagi nal scanning was necessary due to incomplete visualization of the adnexal and endometrial structures by transabdominal scanning. COMPARISON: None. FINDINGS: Uterus: Uterus is surgically absent. Ovaries: Bilateral ovaries are seen and transabdominal only. The right ovary measures 2.6 x 1.9 x 2 cm, with a calculated ovarian volume of 4.99 cc. The left ovary measures 0.6 x 0.8 x 1.6 cm, with a calculated ovarian volume of 1.03 cc. The ovaries have a normal sonographic appearance. Less than 1 2 follicles can be seen in each ovary. No adnexal masses are seen. No cystic lesions measuring great er than 3 cm. Other: No pathologic free abdominal or pelvic fluid. IMPRESSION: 1. Uterus is surgically absent. 2. Normal sonographic appearance of the ovaries and bilateral adnexa. Reviewed by: Suzette Shaffer MD on 04/11/2023 9:40 AM PST Approved by: Suzette Shaffer MD on 04/11/2023 9:40 AM PST Station ID: [id number]
== END 2023-04-10 12:30 | disposition home or self-care (01) ==
LOC: DI 12:29
PROVIDERS: ATTEND Physician Assistant Medical
DX: R10.32 Left lower quadrant pain (principal); Z90.710 Acquired absence of both cervix and uterus

== ENCOUNTER 2023-04-28 09:46 | Outpatient (CLI) | payer MEDICARE ==
[2023-04-28 10:44] LABS: CREATININE 0.6 mg/dL (0.6-1.3)
[2023-04-28] MEDS ORDERED: iohexoL-300 100 ML VIAL IVP ONE (11:42)
[2023-04-28] MEDS ORDERED: DIATRIZOATE MEGLU/DIATRIZO SOD 30 ML BOTTLE PO ONE (11:42)
--- NOTE | 2023-04-28 15:46 | CT Report ---
PROCEDURE: ABDOMEN/PELVIS W INDICATIONS: LLQ ABD PAIN CONTRAST: 100ml omni 300 TECHNIQUE: After the administration of oral and intravenous contrast, 5 mm thick sections acquired from the diap hragms to the symphysis. 5 mm thick coronal and sagittal reformats were acquired. For radiation dos e reduction, the following was used: automated exposure control, adjustment of mA and/or kV accordin g to patient size. COMPARISON: CT abdomen with and without contrast dated 10/05/2017. FINDINGS: Image quality: Excellent. Lung bases and heart: Unremarkable. Liver: No solid mass. Unchanged hyperdense region in the posterior medial right lobe of the liver. Re ference previous image 21 of series 5 and current image 20 of series 2. This likely represents flash filling of a hemangioma. Other low-density lesions are stable and likely represent hepatic cysts. Gallbladder and biliary tree: No radiopaque stones or wall thickening. No biliary dilation. Spleen: No splenomegaly. Pancreas: No pancreatic ductal dilation. Adrenals: No adrenal nodule. Kidneys and ureters: No hydronephrosis. No renal cystic lesion which requires follow up. No solid mas s. Bowel and peritoneum: No bowel distension. No pathologic free fluid. There is possible segmental coli tis involving the colon from the hepatic flexure to the mid transverse colon. This segment of colon i s decompressed and appears to have diffuse wall thickening and potentially inflammatory change in the adjacent fat. The remainder of the colon and small bowel are unremarkable in appearance. Lymph nodes: No central or retroperitoneal adenopathy. Vessels: No infrarenal aortic aneurysm. PELVIS Reproductive organs: Uterus is surgically absent.. Bladder: No abnormal wall thickening, accounting for underdistension. Pelvic lymph nodes: No pelvic adenopathy by size criteria. Bones: No aggressive osseous abnormality. Prominent facet arthropathy at L4-L5 with anterolisthesis o f L4 on L5 measuring 8 mm. There is a shallow posterior superior disc extrusion associated with this. There is severe bilateral foraminal narrowing secondary to bilateral foraminal disc material, with b ilateral foraminal L4 nerve root impingement. There is at least moderate central canal stenosis. Other: No significant ventral or inguinal hernia. IMPRESSION: 1. No findings explain the patient's left lower quadrant pain. 2. Findings suggest probable segmental colitis from the hepatic flexure to the mid transverse colon. Consider ischemic versus inflammatory versus infectious etiologies. 3. Remote hysterectomy. 4. At L4-L5, there is prominent facet arthropathy resulting in anterolisthesis of L4 on L5. There is shallow posterior superior disc extrusion. There is at least moderate canal stenosis. Bilateral shar inal disc material significantly impinges on the bilateral L4 nerve roots in the neural foramina. 5. The liver lesion previously questions in 2018 likely represents a hemangioma, unchanged. Reviewed by: Telly Villagomez MD on 04/28/2023 3:44 PM PST Approved by: Telly Villagomez MD on 04/28/2023 3:44 PM PST Station ID: [id number]
== END 2023-04-28 09:47 | disposition home or self-care (01) ==
LOC: LAB 09:46
PROVIDERS: ATTEND Physician Assistant Medical
DX: R10.32 Left lower quadrant pain (principal); Z90.710 Acquired absence of both cervix and uterus; M47.816 Spondylosis without myelopathy or radiculopathy, lumbar region; M43.16 Spondylolisthesis, lumbar region; M51.26 Other intervertebral disc displacement, lumbar region; M48.061 Spinal stenosis, lumbar region without neurogenic claudication; K76.89 Other specified diseases of liver
CPT/HCPCS: 36415; 74177; 82565; Q9963; Q9967

== ENCOUNTER 2023-11-07 11:54 | Outpatient (CLI) | payer MEDICARE ==
[2023-11-07 12:12] LABS: BILIRUBIN,URINE NEGATIVE (NEGATIVE); GLUCOSE, URINE (UA) NEGATIVE (NEGATIVE); KETONES,URINE (UA) NEGATIVE (NEGATIVE); LEUKOCYTE ESTERASE, URINE NEGATIVE (NEGATIVE); NITRITE,URINE POSITIVE (NEGATIVE); OCCULT BLOOD,URINE LARGE (NEGATIVE); PROTEIN,URINE NEGATIVE (NEGATIVE); UROBILINOGEN,URINE 0.2 (NORMAL) E.U./dL (NORMAL)
[2023-11-07 12:24] LABS: BACTERIA,URINE None Seen /HPF (None Seen); CLARITY,URINE CLEAR (CLEAR); RBC,URINE TNTC /HPF (0-5); SQUAMOUS EPITHELIAL CELL,UR RARE Squamous (<= Few)
== END 2023-11-07 11:55 | disposition home or self-care (01) ==
LOC: LAB 11:54
PROVIDERS: ATTEND Nurse Practitioner
DX: R30.0 Dysuria (principal)
CPT/HCPCS: 81001; 87086